=== PATIENT | male | born 1990 | race Caucasian/White ===

== ENCOUNTER 2019-01-22 21:11 | Emergency (ER) | payer OTHER ==
[2019-01-22] MEDS ORDERED: BACITRACIN 15 GM TUBE TOPICAL OINTMENT TP ONE (21:53)
[2019-01-22] MEDS ORDERED: LIDOCAINE 5% TOPICAL PATCH TP ONE (21:53)
[2019-01-22] MEDS ORDERED: METHOCARBAMOL 500 MG TABLET PO ONE (21:53)
[2019-01-22] MEDS ORDERED: IBUPROFEN 600 MG TABLET (FP) PO ONE ×2 (21:53→22:12)
[2019-01-22 22:06] VITALS: BMI 28.1
[2019-01-22] MEDS ORDERED: METHOCARBAMOL 500 MG TABLET ONE (22:11)
[2019-01-22] MEDS ORDERED: LIDOCAINE 5% TOPICAL PATCH ONE (22:12)
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
[2019-01-22 23:36] VITALS: BP 135/67; PULSE 87; TEMP 98
== END 2019-01-22 23:48 | disposition home or self-care (01) ==
LOC: JER 21:11
DX: S13.4XXA Sprain of ligaments of cervical spine, initial encounter (principal); S50.311A Abrasion of right elbow, initial encounter; V43.52XA Car driver injured in collision with other type car in traffic accident, initial encounter; W22.12XA Striking against or struck by front passenger side automobile airbag, initial encounter; Y92.414 Local residential or business street as the place of occurrence of the external cause; Y93.89 Activity, other specified; Y99.8 Other external cause status
CPT/HCPCS: 72070-TC-FY; 72100-TC-FY; 99282-25